=== PATIENT | female | born 1970 | race Caucasian/White ===

== ENCOUNTER 2017-11-21 10:29 | Emergency (ER) | payer OTHER ==
[~2017-11-21] VITALS: Ht 167.6 cm; Wt 49.9 kg
[2017-11-21] MEDS ORDERED: TRAMADOL 50 MG50 MG PO (11:51)
[2017-11-21] MEDS ORDERED: PHENERGAN 25 MG25 M1 PO (11:51)
[2017-11-21] MEDS ORDERED: ACETAMINOPHEN-1 EAC1 PO (11:59)
[2017-11-21 12:17] VITALS: BP 125/71
== END 2017-11-21 12:18 | disposition home or self-care (01) ==
LOC: M.ERS 10:29
DX: S52.591A Other fractures of lower end of right radius, initial encounter for closed fracture (principal); M25.511 Pain in right shoulder; W10.8XXA Fall (on) (from) other stairs and steps, initial encounter; Y93.89 Activity, other specified; Y92.89 Other specified places as the place of occurrence of the external cause; Y99.8 Other external cause status

== ENCOUNTER → 2018-06-05 | Outpatient (CLI) | payer OTHER ==
[~2018-06-05] MED LIST: ACETAMINOPHEN-1 EAC1 PO; PHENERGAN 25 MG25 M1 PO; TRAMADOL 50 MG50 MG PO
== END ==
LOC: M.RAD 08:05
DX: Z12.31 Encounter for screening mammogram for malignant neoplasm of breast (principal)

== ENCOUNTER → 2018-06-11 | Outpatient (CLI) | payer OTHER | LOC: M.RAD 06-06 11:14 | DX: N63.10 Unspecified lump in the right breast, unspecified quadrant (principal); R92.2 Inconclusive mammogram ==

== ENCOUNTER → 2018-12-03 | Outpatient (CLI) | payer OTHER | LOC: M.ULTRA 13:00 | DX: R92.2 Inconclusive mammogram (principal) ==

== ENCOUNTER → 2019-06-06 | Outpatient (CLI) | payer OTHER | LOC: M.RAD 10:09 | DX: Z12.31 Encounter for screening mammogram for malignant neoplasm of breast (principal) ==

== ENCOUNTER → 2020-09-23 | Outpatient (CLI) | payer OTHER | LOC: M.RAD 09:20 | PROVIDERS: ATTEND Internal Medicine | DX: Z12.31 Encounter for screening mammogram for malignant neoplasm of breast (principal) ==

== ENCOUNTER → 2021-09-28 | Outpatient (CLI) | payer OTHER | LOC: M.RAD 10:00 | PROVIDERS: ATTEND Internal Medicine | DX: Z12.31 Encounter for screening mammogram for malignant neoplasm of breast (principal) ==